=== PATIENT | female | born 1940 | race Caucasian/White ===

== ENCOUNTER 2017-01-04 08:41 | Day surgery (SDC) | payer MEDICARE, OTHER ==
[~2017-01-04 08:41] MED LIST: Buffered Lidocaine 0.9% SYRIN* 5 ML/SYR SYRINGE INTRADERM ONE; Famotidine IV* 10 MG/ML 2 ML (20 mg) IV ONE; Metoclopramide IV* 5 MG/ML 2 ML VIAL IV SLOW PU ONE
[2017-01-04] MEDS ORDERED: Metoclopramide TAB* 10 MG ONE (08:47)
[2017-01-04] MEDS ORDERED: Famotidine IV* 10 MG/ML 2 ML (20 mg) ONE (08:47)
[2017-01-04] MEDS ORDERED: Buffered Lidocaine 0.9% SYRIN* 5 ML/SYR SYRINGE ONE (08:48)
[2017-01-04] MEDS ORDERED: ceFOXitin 2 GM IVPREMIX* 2 GM/50 ML BAG ONE (08:48)
[2017-01-04] MEDS ORDERED: Ondansetron INJ* 2 MG/ML VIAL ONE (10:20)
[2017-01-04] MEDS ORDERED: Midazolam* 1 MG/ML 5 ML VIAL (5 MG) ONE (10:20)
[2017-01-04] MEDS ORDERED: Ketorolac INJ* 30 MG/ML 1 ML VIAL ONE (10:20)
[2017-01-04] MEDS ORDERED: Dexamethasone IV* 4 MG/ML 1 ML (4 MG) ONE (10:20)
[2017-01-04] MEDS ORDERED: fentaNYL* 50 MCG/ML 2 ML VIAL (100 MCG VIAL) ONE (10:20)
[2017-01-04] MEDS ORDERED: KETAMINE HCL* 50 MG/ML 10 ML VIAL ONE (10:20)
[2017-01-04] MEDS ORDERED: Propofol* 10 MG/ML 20 ML BTL IV PUSH ONE (10:20)
[2017-01-04] MEDS ORDERED: Lidocaine 2% PF * 5 ML VIAL ONE (10:20)
[2017-01-04 12:48] VITALS: BP 112/64
--- NOTE | 2017-01-06 08:40 | OP ---
DATE OF OPERATION: 01/04/17 - [facility] DATE OF : 38 SURGEON: Kristyn Gunter MD QUOTE CLERK: None. ANESTHESIOLOGIST: Robert Mercedes MD ANESTHESIA: Spinal with sedation. PRE-OP DIAGNOSIS: Postmenopausal bleeding. POST-OP DIAGNOSES: Postmenopausal bleeding, endometrial polyp. OPERATIVE PROCEDURE: Dilation, curettage, and hysteroscopy. FINDINGS: Revealed a stenotic cervix, normal uterine contour cavity with the exception of an enlarged, elongated greater than 2.5 cm endometrial polyp, normal tubal ostia seen bilaterally. ESTIMATED BLOOD LOSS: Minimal. URINE OUTPUT: 100 cc of clear yellow urine. FLUIDS: 1000 cc of crystalloid. DEFICIT: Zero. COMPLICATIONS: None apparent. DISPOSITION: Stable to recovery room. DESCRIPTION OF PROCEDURE: The patient was placed in dorsal lithotomy position. Legs were placed in [place] Adriel stirrups. The perineum and vagina were prepped and draped in the sterile standard fashion. The patient was identified with universal protocol for correct position, patient, and procedure. A straight catheter was inserted for drainage of clear yellow urine. Then, sterile speculum was inserted into the vagina and cervix was grasped on the anterior lip with a single-tooth tenaculum and dilated to #6 Hegar dilator. A hysteroscope was then inserted and the uterine cavity was visualized. Tubal ostia were noted to have a normal appearance. There was a large, greater than 2.5 cm polyp occupying the uterine cavity with the base coming off near the opening of the left tubal ostia. The hysteroscope was removed. Sharp curettage was performed and a polyp forceps was then inserted and the polyp was extracted in toto. Hysteroscope was re- inserted. Uterine cavity was noted to be free and clear of any endometrial polyp. Hysteroscope was then removed. Single- tooth tenaculum was removed. Sterile speculum was removed. The patient tolerated the procedure well and went to the recovery room in stable condition. [id number]/[facility] [place] #: [id number] [facility]
== END 2017-01-04 13:13 | disposition home or self-care (01) ==
LOC: OR 08:41
PROVIDERS: ATTEND Obstetrics & Gynecology
DX: N95.0 Postmenopausal bleeding (principal); N32.81 Overactive bladder
CPT/HCPCS: 88305; A9270-GY; J0694; J1100; J1885; J2250; J2405; J2704; J3010

== ENCOUNTER 2018-02-27 15:43 | Emergency (ER) | payer MEDICARE, OTHER ==
[2018-02-27 15:54] VITALS: BP 137/83
--- NOTE | 2018-02-27 16:39 | UC ---
Skin Complaint HPI - HPI Summary HPI Summary: This patient is a 77 year old F [place] [facility] [place] a chief complaint of an insect bite on the left hand that occurred yesterday. The patient rates the pain 0/10 in severity. Patient reports warmth, swelling, and itching of the hand that is spreading to her forearm. Patient denies fever and chills. Pt states her tetanus is UTD. 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 Onset/Duration: Still Present Skin Exposure Onset/Duration: Days Ago - 1 Timing: Constant Onset Severity: Mild Current Severity: Mild Pain Intensity: 0 Pain Scale Used: 0-10 Numeric Location: Hand (Left) Character: Swelling, Pain, Redness, Painful Associated Signs & Symptoms: Positive: Negative - fever and chills - Allergy/Home Medications Allergies/Adverse Reactions: Allergies Allergy/AdvReac Type Severity Reaction Status Date / Time erythromycin base Allergy Intermediate Nausea Verified 02/27/18 15:55 Sulfa (Sulfonamide Allergy Intermediate Nausea Verified 02/27/18 15:55 Antibiotics) Tetracyclines Allergy Nausea Verified 02/27/18 15:55 Home Medications: Home Medications Myrbetriq (NF) 50 mg PO DAILY 02/27/18 [History Confirmed 02/27/18] Review of Systems Constitutional: Negative - fever Skin: Other - redness and insect bite to the left hand Musculoskeletal: Edema - of the left hand, Other: - pain at the left hand All Other Systems Reviewed And Are Negative: Yes PMH/Surg Hx/FS Hx/Imm Hx Endocrine History: Other Other Endocrine History: thyroiditis Other History Of: Negative For: HIV - Surgical History Surgical History: Yes Surgery Procedure, Year, and Place: LUMBAR MICRODISCECTOMY 1999 [facility] [place]. BILATERAL CATARACT SURGERY 2011 [facility] [place] - Family History Known Family History: Negative: Hypertension, Diabetes, Renal Disease, Respiratory Disease, Seizure Disorder, Blood Disorder - Social History Occupation: Retired Lives: With Family Alcohol Use: Daily Alcohol Amount: 2 DRINKS/DAY Substance Use Type: None Smoking Status (MU): Never Smoked Tobacco Have You Smoked in the Last Year: No Physical Exam Triage Information Reviewed: Yes Appearance: Well-Appearing Vital Signs: Initial Vital Signs Temp 98.4 F 02/27/18 15:48 Pulse 84 02/27/18 15:48 Resp 16 02/27/18 15:48 BP 137/83 02/27/18 15:48 Pulse Ox 99 02/27/18 15:48 Vital Signs Reviewed: Yes ENT: Positive: Normal ENT inspection, Pharynx normal. Negative: Nasal congestion, Muffled voice, Hoarse voice Neck exam: Normal Respiratory: Positive: Lungs clear, Normal breath sounds, No respiratory distress Cardiovascular: Positive: RRR, No Murmur Abdomen Description: Positive: Distended Musculoskeletal: Positive: Strength Intact, ROM Intact, Other: - she has redness to the left dorsal hand and up the medial forearm with increased warmth , and there is some soft tissue swelling. Consistent with likely cellulitis. Psychological Exam: Normal Skin Exam: Normal Course/Dx - Course Course Of Treatment: 77 yr old female status post bug bite a day ago and now cellulitis. Rx with clindamycin. If worsens she knows to go [facility]. - Diagnoses Provider Diagnoses: bug bite. cellulitis left forearm Discharge - Sign-Out/Discharge Documenting (check all that apply): Patient Departure All imaging exams completed and their final reports reviewed: No Studies - Discharge Plan Condition: Good Disposition: HOME Prescriptions: Clindamycin Cap(NF) [Clindamycin Cap 300 mg Cap(NF)] 300 mg PO Q6H #40 cap Patient Education Materials: Insect Bite or Sting (ED), Cellulitis (ED) Referrals: Simon Pedroza MD [Primary Care Provider] - 2 Days - Billing Disposition and Condition Condition: GOOD Disposition: Home - Attestation Statements Document Initiated by Justaibe: Yes Documenting Scribe: Alexi Loo Provider For Whom Keith is Documenting (Include Credential): Morales Cespedes MD Scribe Attestation: Alexi Bateman, scribed for Morales Cespedes MD on 02/27/18 at 1641. Scribe Documentation Reviewed: Yes Provider Attestation: The documentation as recorded by the Alexi dumont accurately reflects the service I personally performed and the decisions made by me, Morales Cespedes MD
== END 2018-02-27 16:45 | disposition home or self-care (01) ==
LOC: UCEAST 15:43
DX: S60.562A Insect bite (nonvenomous) of left hand, initial encounter (principal); L03.114 Cellulitis of left upper limb; Z88.1 Allergy status to other antibiotic agents; Z88.2 Allergy status to sulfonamides; W57.XXXA Bitten or stung by nonvenomous insect and other nonvenomous arthropods, initial encounter; Y92.9 Unspecified place or not applicable
CPT/HCPCS: 99212; G0463

== ENCOUNTER 2018-03-02 10:03 | Emergency (ER) | payer MEDICARE, OTHER ==
[2018-03-02 10:15] VITALS: BP 116/72
--- NOTE | 2018-03-02 10:23 | UC ---
Skin Complaint HPI - HPI Summary HPI Summary: This patient is a 77 year old F presenting to [facility] with a chief complaint of diffuse rash that began yesterday. The patient rates the pain 0/10 in severity. Symptoms aggravated by nothing. Symptoms alleviated by nothing. Patient denies fever, abd pain, and sore throat. Patient believes this rash may be due to Clindamycin that was prescribed on 02/27/2018 for an insect bite on L hand that resulted in swelling and erythema. Pt reports that her symptoms on her left hand have improved. 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 ?: No Onset/Duration: Sudden Onset, Lasting Days, Still Present Timing: Constant Onset Severity: Mild Current Severity: Mild Pain Intensity: 0 Pain Scale Used: 0-10 Numeric Location: Generalized Character: Redness Aggravating Factor(s): Nothing Alleviating Factor(s): Nothing Associated Signs & Symptoms: Negative: Fever, Abdominal Pain - Allergy/Home Medications Allergies/Adverse Reactions: Allergies Allergy/AdvReac Type Severity Reaction Status Date / Time erythromycin base Allergy Intermediate Nausea Verified 03/02/18 10:15 Sulfa (Sulfonamide Allergy Intermediate Nausea Verified 03/02/18 10:15 Antibiotics) Tetracyclines Allergy Nausea Verified 03/02/18 10:15 Review of Systems Constitutional: Other - Negative fever Skin: Rash ENT: Other - Negative sore throat Gastrointestinal: Other - Negative abd pain All Other Systems Reviewed And Are Negative: Yes PMH/Surg Hx/FS Hx/Imm Hx Previously Healthy: No Endocrine History: Other Other Endocrine History: Negativd diabetes Cardiovascular History: Other Other Cardiovascular History: Negative HTN Other History Of: Negative For: HIV - Surgical History Surgical History: Yes Surgery Procedure, Year, and Place: LUMBAR MICRODISCECTOMY 1999 [facility] [place]. BILATERAL CATARACT SURGERY 2011 [facility] [place] - Family History Known Family History: Negative: Hypertension, Diabetes, Renal Disease, Respiratory Disease, Seizure Disorder, Blood Disorder - Social History Occupation: Retired Lives: With Family Alcohol Use: Daily Alcohol Amount: 2 DRINKS/DAY Substance Use Type: None Smoking Status (MU): Never Smoked Tobacco Have You Smoked in the Last Year: No Physical Exam - Summary Physical Exam Summary: General: well-appearing, no pain distress Skin: warm, color reflects adequate perfusion, dry, erythematous, diffuse, blanching rash. Head: normal Eyes: EOMI, AHSAN ENT: normal Neck: supple, nontender Respiratory: CTA, breath sounds present Cardiovascular: RRR Abdomen: soft, nontender Bowel: present Musculoskeletal: normal, strength/ROM intact Neurological: sensory/motor intact, A&O x3 Psychological: affect/mood appropriate Triage Information Reviewed: Yes Vital Signs: Initial Vital Signs Temp 98.3 F 03/02/18 10:13 Pulse 71 03/02/18 10:13 Resp 18 03/02/18 10:13 BP 116/72 03/02/18 10:13 Pulse Ox 99 03/02/18 10:13 Vital Signs Reviewed: Yes Course/Dx - Course Course Of Treatment: PROBABLY DUE TO CLINDAMYCIN. STOP THE CLINDAMYCIN. IF THE RASH PERSISTS, WILL START THE MEDROL DOSE ANABELLA AND F/U PMD. IF WORSENS, THEN RE EVAL IN ED. - Diagnoses Provider Diagnoses: GENERALIZED RASH Discharge - Sign-Out/Discharge Documenting (check all that apply): Patient Departure All imaging exams completed and their final reports reviewed: No Studies - Discharge Plan Condition: Stable Disposition: HOME Prescriptions: methylPREDNISolone [Medrol Dosepak 4 MG*] 4 mg PO .SEE ANABELLA INSTRUCTION #1 anabella Patient Education Materials: Acute Rash (ED) Referrals: Simon Pedroza MD [Primary Care Provider] - Additional Instructions: FOLLOW UP WITH YOUR DOCTOR IF NOT COMPLETELY IMPROVED. STOP TAKING THE CLINDAMYCIN. GO TO THE EMERGENCY DEPARTMENT FOR ANY WORSENING OF YOUR CONDITION; FEVER, DIFFICULTY WITH SWALLOWING OR BREATHING, YOU FEEL ILL OR QUESTIONS OR CONCERNS. - Billing Disposition and Condition Condition: STABLE Disposition: Home - Attestation Statements Document Initiated by Scribe: Yes Documenting Scribe: Angela Rebolledo Provider For Whom Keith is Documenting (Include Credential): Steven Esparza MD Scribe Attestation: I, Angela Rebolledo, scribed for Steven Esparza MD on 03/02/18 at 1058. Scribe Documentation Reviewed: Yes Provider Attestation: The documentation as recorded by the lanceeAngela accurately reflects the service I personally performed and the decisions made by me, Steven Esparza MD
== END 2018-03-02 10:35 | disposition home or self-care (01) ==
LOC: UCEAST 10:03
DX: Z88.2 Allergy status to sulfonamides (principal); Z88.1 Allergy status to other antibiotic agents
CPT/HCPCS: 99212; G0463